=== PATIENT | female | born 1995 | race Asian ===

== ENCOUNTER 2016-07-10 14:52 | Emergency (ER) | payer OTHER ==
[~2016-07-10] VITALS: Ht 167.6 cm; Wt 55.5 kg
[~2016-07-10 14:52] MED LIST: CRAN1CHW3 PO
[2016-07-10 14:53] VITALS: Ht 167.6 cm; Wt 55.5 kg
[2016-07-10] MEDS ORDERED: SODIUM CHLORIDE 0.9% 1000ML 1,000 ML IV STA (16:04)
[2016-07-10] MEDS ORDERED: ACETAMINOPHEN 325 MG TAB PO STA (16:04)
[2016-07-10 16:42] LABS: BASO % 0.3 %; BASO ABS # 0.03 K/uL (0-0.2); COMPLETE YES; EOS % 1.8 %; HEMATOCRIT 40.8 % (37-47); IG% 0.3 %; LYMPH % 21.1 %; LYMPH ABS # 2.05 K/uL (1.2-3.4); MEAN CELL VOLUME 88.9 fL (80-100); MEAN CORPUSCULAR HEMOGLOBIN 30.7 pg (25-34); MEAN CORPUSCULAR HGB CONC 34.6 g/dl (32-36); MEAN PLATELET VOLUME 10.6 fL (7.4-10.4); MONO % 4.7 %; NEUT % 71.8 %; PLATELET COUNT 240 K/uL (130-400); RED BLOOD COUNT 4.59 M/uL (4.2-5.4)
[2016-07-10 17:27] LABS: URINE APPEARANCE CLEAR (CLEAR); URINE BILIRUBIN NEG (NEG); URINE COLOR YELLOW; URINE EPITHELIAL CELL AUTO >30 /lpf (0-5); URINE NITRITE NEG (NEG); URINE PH 6.5 (4.5-7.5); URINE SPECIFIC GRAVITY 1.021 (1.000-1.030); UROBILINOGEN NEG (NEG)
[2016-07-10 17:43] LABS: MANUAL MICROSCOPIC REQUIRED? NO; REVIEW REQ? NO
--- NOTE | 2016-07-10 18:02 | EMERGENCY ROOM VISIT NOTE ---
History Report prepared by Paul: Bharti Burnham Under the Supervision of: Dr. Kulwant Christine M.D. First contact with patient: 15:59 Chief Complaint: ED VAG BLEEDING Stated Complaint: 5 WEEKS PREG., VAG. BLEEDING AND ABD. PAIN History of Present Illness The patient is a 21 year old female who presents to the Emergency Room with complaints of constant vaginal bleeding beginning 4 days prior to arrival. The patient notes that she is 5 weeks and had an ultrasound done last week. Her LNMP was May 24, 2016. She is also experiencing mild abdominal pain. She denies any other symptoms at this time. Source of History: patient Onset: 4 days M[employer]ESS [employer] Position: other (vagina) Quality: other (bleeding) Timing: constant Associated Symptoms: + abdominal pain Note: Patient is 5 weeks . She denies any other symptoms at this time. Review of Systems See HPI for pertinent positives & negatives. A total of 10 systems reviewed and were otherwise negative. Past Medical & Surgical Medical Problems: (1) No Known Active Medical Problems Family History No pertinent family history Social History Smoking Status: Current Every Day Smoker Alcohol Use: occasionally Housing Status: lives with roommate Occupation Status: [employer] student Current/Historical Medications Scheduled Ondasetron Odt (Zofran Odt), 4 MG SL Q6H Allergies Coded Allergies: No Known Allergies (Unverified , 07/10/16) Physical Exam Vital Signs Date Time Temp Pulse Resp B/P Pulse Ox O2 Delivery O2 Flow Rate FiO2 07/10/16 19:01 37.0 71 16 94/52 100 Room Air 07/10/16 16:58 72 18 97/46 07/10/16 14:53 36.9 78 17 109/67 98 Room Air Physical Exam CONSTITUTIONAL: Mildly anxious. HEENT: No icterus, moist mucous membranes NECK: No meningismus, trachea is midline. CARDIOVASCULAR: Regular rate, normal perfusion RESPIRATORY: Unlabored breathing. Clear to auscultation. GASTROINTESTINAL: Mild right upper quadrant and suprapubic tenderness. GENITOURINARY: No flank tenderness MUSCULOSKELETAL: Full range of motion NEUROLOGIC: No acute gross focal deficits. PSYCHIATRIC: Normal affect SKIN: Normal for ethnicity. Medical Decision & Procedures Laboratory Results 07/10/16 16:26 Red Blood Count 4.59, Mean Corpuscular Volume 88.9, Mean Corpuscular Hemoglobin 30.7, Mean Corpuscular Hemoglobin Concent 34.6, Mean Platelet Volume 10.6, Neutrophils (%) (Auto) 71.8, Lymphocytes (%) (Auto) 21.1, Monocytes (%) (Auto) 4.7, Eosinophils (%) (Auto) 1.8, Basophils (%) (Auto) 0.3, Neutrophils # (Auto) 6.96, Lymphocytes # (Auto) 2.05, Monocytes # (Auto) 0.46, Eosinophils # (Auto) 0.17, Basophils # (Auto) 0.03 Test 07/10/16 16:26 07/10/16 17:01 White Blood Count 9.70 K/uL (4.8-10.8) Red Blood Count 4.59 M/uL (4.2-5.4) Hemoglobin 14.1 g/dL (12.0-16.0) Hematocrit 40.8 % (37-47) Mean Corpuscular Volume 88.9 fL (80-100) Mean Corpuscular Hemoglobin 30.7 pg (25-34) Mean Corpuscular Hemoglobin Concent 34.6 g/dl (32-36) Platelet Count 240 K/uL (130-400) Mean Platelet Volume 10.6 fL (7.4-10.4) Neutrophils (%) (Auto) 71.8 % Lymphocytes (%) (Auto) 21.1 % Monocytes (%) (Auto) 4.7 % Eosinophils (%) (Auto) 1.8 % Basophils (%) (Auto) 0.3 % Neutrophils # (Auto) 6.96 K/uL (1.4-6.5) Lymphocytes # (Auto) 2.05 K/uL (1.2-3.4) Monocytes # (Auto) 0.46 K/uL (0.11-0.59) Eosinophils # (Auto) 0.17 K/uL (0-0.5) Basophils # (Auto) 0.03 K/uL (0-0.2) RDW Standard Deviation 44.2 fL (36.4-46.3) RDW Coefficient of Variation 13.6 % (11.5-14.5) Immature Granulocyte % (Auto) 0.3 % Immature Granulocyte # (Auto) 0.03 K/uL (0.00-0.02) Total Bilirubin 0.7 mg/dl (0.2-1) Direct Bilirubin 0.1 mg/dl (0-0.2) Aspartate Amino Transf (AST/SGOT) 5 U/L (15-37) Alanine Aminotransferase (ALT/SGPT) 14 U/L (12-78) Alkaline Phosphatase 64 U/L (45-117) Total Protein 7.5 gm/dl (6.4-8.2) Albumin 4.1 gm/dl (3.4-5.0) Lipase 136 U/L (73-393) Human Chorionic Gonadotropin, Quant 14032 mIU/mL Monoscreen NEG (NEG) Urine Color YELLOW Urine Appearance CLEAR (CLEAR) Urine pH 6.5 (4.5-7.5) Urine Specific Quinter 1.021 (1.000-1.030) Urine Protein NEG (NEG) Urine Glucose (UA) NEG (NEG) Urine Ketones NEG (NEG) Urine Occult Blood NEG (NEG) Urine Nitrite NEG (NEG) Urine Bilirubin NEG (NEG) Urine Urobilinogen NEG (NEG) Urine Leukocyte Esterase TRACE (NEG) Urine WBC (Auto) 1-5 /hpf (0-5) Urine RBC (Auto) 0-4 /hpf (0-4) Urine Hyaline Casts (Auto) 1-5 /lpf (0-5) Urine Epithelial Cells (Auto) >30 /lpf (0-5) Urine Bacteria (Auto) NEG (NEG) Labs reviewed by ED physician. Medications Administered Medications (Trade) Dose Ordered Sig/Ronald Route Start Time Stop Time Status Last Admin Dose Admin Sodium Chloride (Nss 1000ml) 1,000 ml @ 0 mls/hr Q0M STAT IV 07/10/16 16:04 07/10/16 16:06 DC 07/10/16 16:04 0 MLS/HR ED Course [id number]: Tylenol Tab 650 mg PO, Sodium Chloride 1,000 ml @ 0 mls/hr Wide Open IV. 1614: Past medical records reviewed. The patient was evaluated in room C5. A complete history and physical examination was performed. 1928: Upon reexamination the patient is hemodynamically stable. I discussed results and treatment plan with the patient. She verbalizes agreement and understanding. The patient is ready for discharge. Medical Decision Differential diagnoses include but are not limited to; ectopic , UTI, gall bladder disease. 21-year-old from [place] but speaks good Japanese presents to the emergency department with LMP May 24 with unknown blood type with first trimester bleeding. Ultrasound demonstrated IUP 5 weeks 6 days with heart rate 110. She is Rh+. Hemodynamically stable with normal vital signs. Mild right upper quadrant tenderness and nausea was noted on review of systems. LFTs and right upper quadrant conjunctivae were normal. She is given a copy of the radiology results and laboratories and case management spoke with patient regarding local outpatient follow-up until she can return to [facility] to see her doctors. Zofran oral dissolving tablets written as needed for nausea. Impression Primary Impression: First trimester bleeding Scribe Attestation The scribe's documentation has been prepared under my direction and personally reviewed by me in its entirety. I confirm that the note above accurately reflects all work, treatment, procedures, and medical decision making performed by me. Departure Information Dispostion Home / Self-Care Prescriptions Ondasetron Odt (ZOFRAN ODT) 4 Mg Tab 4 MG SL Q6H for Nausea, #20 TAB Prov: Kulwant Christine MD 07/10/16 Referrals No Doctor, Assigned (PCP) Forms HOME CARE DOCUMENTATION FORM, IMPORTANT VISIT INFORMATION, WORK / SCHOOL INSTRUCTIONS Patient Instructions My [facility] [employer] Additional Instructions See [email or web address] patient handout on first trimester bleeding. Follow-up with OB -TEMPLATE STORAGE CLERK.
--- NOTE | 2016-07-10 18:17 | DIAGNOSTIC IMAGING REPORT ---
ABDOMINAL ULTRASOUND, RIGHT UPPER QUADRANT HISTORY: mild RUQ discomfort, . COMPARISON: None. FINDINGS: Pancreas: The pancreas demonstrates a normal echotexture. Liver: Unremarkable. Gallbladder: No gallbladder wall thickening. No gallstones. CBD: 4 mm. Right kidney: No hydronephrosis. IMPRESSION: No significant abnormality identified within the right upper quadrant. Electronically signed by: Sharath Banuelos M.D. 07/10/2016 6:16 PM Dictated Date/Time: 07/10/2016 6:14 PM
--- NOTE | 2016-07-10 18:23 | DIAGNOSTIC IMAGING REPORT ---
ECTOPIC ULTRASOUND CLINICAL HISTORY: 1st trimester vaginal bleeding COMPARISON STUDY: None. FINDINGS: There is a single viable intrauterine gestation demonstrating a gestational sac, yolk sac and a 2.5 mm fetus. This is consistent with a 5 week and 6 day intrauterine gestation. heart rate was 116 beats per minute. The ovaries are normal in size. Left ovarian thick-walled cyst favors a corpus luteum. No significant pelvic free fluid. No significant subchorionic hematoma. Incidental note is made of a 2 mm cystic focus located adjacent to the yolk sac and pole. IMPRESSION: 1. Single viable 5 week and 6 day intrauterine gestation. heart rate was 116 bpm. 2. Incidental is made of a 2 mm cystic focus located adjacent to the yolk sac and pole. This is too small to characterize and may represent a normal variant. Follow-up pelvic ultrasound in 2 weeks is recommended to ensure resolution. Electronically signed by: Sharath Banuelos M.D. 07/10/2016 6:22 PM Dictated Date/Time: 07/10/2016 6:16 PM
[2016-07-10] MEDS ORDERED: METO-157 PO (18:39)
[2016-07-10 19:01] VITALS: TEMP 37
[2016-07-10] MEDS ORDERED: ONDA4TAB10 SL (19:33)
[2016-07-10 19:44] VITALS: BP 110/68; PULSE 64; O2SAT 100
[2016-07-14 15:45] LABS: EBV EARLY ANTIGEN AB <0.91 INDEX; EPSTEIN BARR VIR CAPSID IGG 3.51 INDEX
== END 2016-07-10 19:46 | disposition home or self-care (01) ==
LOC: C.EDB 14:55 → C.EDC 19:46
DX: O46.91 Antepartum hemorrhage, unspecified, first trimester (principal); F17.200 Nicotine dependence, unspecified, uncomplicated

== ENCOUNTER 2017-05-05 00:02 | Emergency (ER) | payer OTHER ==
[~2017-05-05] VITALS: Ht 167.6 cm; Wt 55.3 kg
[2017-05-05 00:12] VITALS: O2SAT 100
[2017-05-05 00:13] VITALS: TEMP 37; Ht 167.6 cm; Wt 55.3 kg
[2017-05-05] MEDS ORDERED: LORAZEPAM 0.5 MG TAB SL STA (00:19)
[2017-05-05] MEDS ORDERED: ALUMINUM/MAGNESIUM SUSP 30 ML UDC PO STA (00:19)
[2017-05-05] MEDS ORDERED: LIDOCAINE HCL 2% VISC SOLN 20 ML UDC PO STA (00:19)
[2017-05-05 01:14] VITALS: BP 127/79; PULSE 78; O2SAT 99
--- NOTE | 2017-05-05 03:06 | EMERGENCY ROOM VISIT NOTE ---
History First contact with patient: 00:05 Chief Complaint: ANXIETY Stated Complaint: ANXIETY/NUMBNESS IN HANDS History of Present Illness The patient is a 22 year old female who presents to the Emergency Room with complaints of feeling anxious over not eating all day and then drinking wine and then getting an upset stomach and vomiting twice. Patient states she tried to vomit again but was unsuccessful. Patient states she then became anxious and started breathing fast and had tingling in her extremities. Patient states she does not normally do this. Patient denies chest pain, dyspnea, abdominal pain, fevers, blood or black in the vomit, diarrhea. No suicidal or homicidal ideations. Patient is requesting for her boyfriend who is also here in the waiting room. Review of Systems See HPI for pertinent positives & negatives. A total of 10 systems reviewed and were otherwise negative. Past Medical/Surgical History Medical Problems: (1) No Known Active Medical Problems Family History No pertinent family history Social History Smoking Status: Never Smoker Alcohol Use: occasionally Marital Status: in relationship Housing Status: lives with roommate Occupation Status: [employer] student Current/Historical Medications No Active Prescriptions or Reported Meds Physical Exam Vital Signs Date Time Temp Pulse Resp B/P (MAP) Pulse Ox O2 Delivery O2 Flow Rate FiO2 05/05/17 01:14 78 18 127/79 99 05/05/17 01:01 78 18 127/79 99 Room Air 05/05/17 00:14 64 05/05/17 00:13 37.0 73 20 139/73 100 Room Air 05/05/17 00:12 100 Room Air Physical Exam VITALS: Vitals are noted on the nurse's note and reviewed by myself. Vital signs stable. GENERAL: Anxious appearing female crying for her boyfriend, in no acute distress , nondiaphoretic, well-developed well-nourished. SKIN: Capillary reflex less than 2 seconds. HEENT: Normocephalic. PERRLA. EOMI. Nares patent. Mucous membranes moist. Neck is supple without nuchal rigidity. HEART: Regular rate and rhythm without murmurs gallops or rubs. LUNGS: Clear to auscultation bilaterally without wheezes, rales or rhonchi. No retractions or accessory muscle use. ABDOMEN: Positive bowel sounds x 4. Normal tympanic percussion. Soft, nontender, without masses or organomegaly. Gonzalez sign negative. No guarding or rebound tenderness. MUSCULOSKELETAL: No gross musculoskeletal defects. NEURO: Patient was alert and oriented to person place and time. Normal sensation to light and sharp touch. No focal neurological deficits. Psych: Anxious appearing pleasant and cooperative Medical Decision & Procedures Medications Administered Medications (Trade) Dose Ordered Sig/Ronald Route Start Time Stop Time Status Last Admin Dose Admin Lidocaine HCl (Viscous Lidocaine 2% Soln) 10 ml NOW STAT PO 05/05/17 00:19 05/05/17 00:20 DC 05/05/17 00:24 10 ML Al Hydroxide/Mg Hydroxide (Maalox Susp) 30 ml NOW STAT PO 05/05/17 00:19 05/05/17 00:20 DC 05/05/17 00:23 30 ML Lorazepam (Ativan Tab) 0.5 mg NOW STAT SL 05/05/17 00:19 05/05/17 00:20 DC 05/05/17 00:24 0.5 MG ED Course Prior records reviewed and summarized as above. Triage Nursing notes reviewed. Additional history obtained from boyfriend The patient's history was concerning for feeling anxious with tingling in extremities after vomiting after drinking wine Differential diagnosis: Etiologies such as anxiety, gastritis, peptic ulcer, cardiac, GI, neurologic, electrolyte abnormality, as well as others were entertained.. Physical examination: The physical examination was consistent with anxiety after vomiting after drinking wine on an empty stomach ER treatment provided: GI cocktail, Ativan On reassessment the patient felt better. Diagnostics interpreted by me: Deferred This appears to be anxiety after vomiting after drinking wine on an empty stomach patient felt much better after being medicated as above. She ate crackers and drink Gatorade without difficulties. She is requesting to leave. She did not have acute abdomen on exam. She was no longer vomiting. She was well-appearing. She no suicidal or homicidal ideations. She is advised to rest , stay well-hydrated, eat regular meals and avoid alcohol intake. She is advised to follow-up health services in a few days or here in the ER sooner for chest pain, difficulty breathing, abdominal pain, worsening signs or symptoms or as needed. By the evaluation outlined above emergent etiologies such as peptic ulcer, neurologic, as well as others were deemed relatively unlikely. The pt informed about the findings as listed above. All questions were answered and pleased with the treatment. Return instructions were outlined and the patient was discharged in stable condition. Referral: The patient was referred back to health services and/or primary care physician for follow-up in 2 to 3 days for a recheck of the current condition. Medical Decision As above Medication Reconcilliation Current Medication List: was personally reviewed by me Blood Pressure Screening Patient's blood pressure: Normal blood pressure Impression Primary Impression: Acute anxiety Departure Information Dispostion Home / Self-Care Condition GOOD Prescriptions No Active Prescriptions or Reported Meds Referrals [facility] (PCP) Forms HOME CARE DOCUMENTATION FORM, IMPORTANT VISIT INFORMATION Patient Instructions Anxiety Body Response, My [facility] [employer] Additional Instructions Recommend avoid drinking alcohol on an empty stomach. Decrease stress. Eat regular meals. Rest and drink plenty of fluids as tolerated. Continue current medications. Return to the ER immediately for worsening or persistent anxiety, abdominal pain , vomiting, fevers, chest pains, difficulty breathing, worsening of your condition, or as needed. Follow up with your primary physician/health services in 2-3 days for a recheck of your current condition.
== END 2017-05-05 01:15 | disposition home or self-care (01) ==
LOC: EDBD 00:02 → C.EDA 00:04
DX: F41.9 Anxiety disorder, unspecified (principal)